=== PATIENT | female | born 1995 | race Caucasian/White ===

== ENCOUNTER 2019-04-28 10:30 | Emergency (ER) | payer OTHER ==
[~2019-04-28] VITALS: Ht 170.2 cm; Wt 99.8 kg
== END 2019-04-28 10:47 | disposition home or self-care (01) ==
LOC: ED 10:30
DX: M25.571 Pain in right ankle and joints of right foot (principal)

== ENCOUNTER 2019-05-31 22:01 | Emergency (ER) | payer OTHER ==
[~2019-05-31] VITALS: Ht 170.2 cm; Wt 99.8 kg
[2019-05-31] MEDS ORDERED: AMOXICILLIN500 MG PO (22:25)
[2019-05-31] MEDS ORDERED: SUDAFED 12 HOU120 MG PO (22:25)
== END 2019-05-31 22:32 | disposition home or self-care (01) ==
LOC: ED 22:01
DX: H66.92 Otitis media, unspecified, left ear (principal); J02.9 Acute pharyngitis, unspecified
CPT/HCPCS: 99282

== ENCOUNTER 2020-03-06 10:10 | Inpatient (IN) | payer OTHER ==
[~2020-03-06 10:10] MED LIST: AMOXICILLIN500 MG PO; SUDAFED 12 HOU120 MG PO
--- NOTE | 2020-03-07 13:33 | NUR ---
03/07/20 1333 Sheets,Marlene 1310 PT ARRIVED TO PACU ON RA AND VSS. IV INFUSING LR WITH 20 PIT IN RIGHT HAND, SITE WNL. FUNDAL CHECK SMALL CLOT NOTED. HOB INCREASED PT DENIES DIZZINESS AND NAUSEA. PT DENIES PAIN, SPINAL LEVEL T-6. AT BEDSIDE.
--- NOTE | 2020-03-10 10:21 | PR ---
[facility] [address] [facility] [place], [place] [address] Signed PP Progress Notes Datetime Report Generated by CPN: 03/10/2020 10:21 SUBJECTIVE: [id number] Pain: Within Normal Limits Nausea/Vomiting: Denies Flatus: Yes Bowel Movement: No Vital Signs: [id number] Cardiovascular: Normal Respiratory: Normal Abdomen/Uterus: Normal Lochia: Normal Extremities: Normal Incision: Normal Progress: Normal Exam Comments: Heart RRR Lungs CTAB Fundus firm below U Incision c/d/i, n o erythema trace BLLE edema IMPRESSION/PLAN/PROCEDURES: [id number] Impression: Normal Progression Plan: Discharge Procedures: None Progress Notes: POD#3 s/p PLTCS, macrosomia and GDM-insulin -mother progressing well post-op, would like DC to boarder status today -staple removal tomorrow (boarder) before going home Acute blood loss anemia on chronic anemia of -asymptomatic -start oral iron once +BM Signing Physician: Meena Freed DO Copies: ~ *Electronically Signed* 03/10/20 1021 MEENA FREED DO PATIENT NAME: LUDWIN VERDUZCO PROGRESS NOTE DATE OF : 95 PHYSICIAN: MEENA FREED DO RPT #: [id number] REPORT IS CONFIDENTIAL AND NOT TO BE RELEASED WITHOUT AUTHORIZATION
--- NOTE | 2020-03-12 03:33 | OR ---
[facility] [address] [place] [address] Signed DATE OF OPERATION: 03/07/2020 SURGEON: Meena Freed DO TELEPHONE COIN BOX COLLECTOR: Henry Senior DO PREOPERATIVE DIAGNOSES: 1. Gestational diabetes, on insulin. 2. macrosomia. POSTOPERATIVE DIAGNOSES: 1. Gestational diabetes, on insulin. 2. macrosomia. PROCEDURE: Primary low transverse section. ANESTHESIA: Spinal. ESTIMATED BLOOD LOSS: 650 mL. LINES: None. DRAINS: Alvarado catheter. SPECIMENS: 1. Placenta. 2. Segmented of umbilical cord. 3. Cord blood. FINDINGS: Live born term male , weighing 10 pounds and 15 ounces, Apgars 9 and 9. Normal-appearing uterus, bilateral tubes and ovaries, normal-appearing appendix. INDICATION: Electronically Signed By: MEENA FREED DO 03/12/20 0333 PATIENT NAME: LUDWIN VERDUZCO OPERATIVE REPORT DATE OF : 95 REPORT #: [id number] PHYSICIAN: MEENA FREED DO PCP: EMY MIRANDA REPORT IS CONFIDENTIAL AND NOT TO BE RELEASED WITHOUT AUTHORIZATION [facility] [address] [place] [address] Signed The patient is a 24-year-old , who presented for scheduled elective primary low transverse section. She had been measuring large during this . Growth ultrasound on Thursday demonstrated an estimated weight of 4228 g, however, Eitan's the same day in office was significant for estimated weight exceeding 10 pounds. Risks, benefits, and alternatives to elective versus medical induction of labor for gestational diabetes were discussed and the patient strongly preferred elective delivery. DESCRIPTION OF PROCEDURE: The patient was taken back to the operating room. She received 2 g Ancef preoperatively for antibiotic prophylaxis. Spinal anesthesia was placed and she was positioned in a supine position with leftward tilt. SCDs were applied and Alvarado catheter was inserted. She was prepped and draped in the normal sterile fashion and spinal anesthesia was found to be adequate. Pfannenstiel incision was made with a scalpel and carried down to the underlying fascia. Fascia was incised at midline with the scalpel and incision was extended laterally with Nesbitt scissors. Superior margin of the fascia was then grasped with Kochers, elevated and the underlying rectus muscle was dissected off bluntly and sharply with Nesbitt scissors. This margin was then released. The inferior margin was grasped with Kochers and elevated in a similar fashion. Underlying rectus muscles were dissected off with blunt and sharp dissection with Nesbitt scissors. Peritoneum was entered bluntly at midline and extended with lateral retraction. Papito retractor was placed. Bladder was easily identified. Hysterotomy was made with a scalpel and extended laterally with superior and inferior retraction. Amniotomy was performed bluntly. 's head was gently elevated and delivered easily in the ROT position followed by the remainder of the 's body which delivered without difficulty. Cord was immediately and doubly clamped and cut and the baby was handed off to the waiting Nursery RN. Segment of cord was doubly clamped and cut and cord blood was collected for type and Jonas. Placenta was delivered by manual traction. Uterus was cleared of membranes. Each apex of the hysterotomy was secured with 0 monocryl in a simple interrupted fashion. Hysterotomy was closed with 0 Monocryl in a running locked fashion. Second layer of closure was completed in imbricating fashion also with 0 Monocryl. Hemostasis was noted. Pelvis was irrigated with warm sterile saline, suctioned, and uterus, tubes, ovaries, and appendix were inspected with findings noted as above. ACell sheet was placed over the hysterotomy and the peritoneum was closed Electronically Signed By: MEENA FREED DO 03/12/20 0333 PATIENT NAME: LUDWIN VERDUZCO OPERATIVE REPORT DATE OF : 95 REPORT #: [id number] PHYSICIAN: MEENA FREED DO PCP: EMY MIRANDA REPORT IS CONFIDENTIAL AND NOT TO BE RELEASED WITHOUT AUTHORIZATION [facility] [address] [place], [place] [address] Signed in a running fashion with 2-0 Vicryl. Rectus muscles were inspected for bleeding and any small bleeding vessels noted were cauterized with the Bovie. Rectus was re-approximated gently with 0 Vicryl with 1 [id number]-fm-nseyu and 1 simple interrupted stitch. ACell powder was then applied. Excellent hemostasis was noted. Fascia was closed with 0 Vicryl in a running fashion with 2 sutures, 1 from each apex working towards midline and meeting in the middle. Subcutaneous layer was irrigated, suctioned, and any small vessels were cauterized with Bovie cautery. This was closed with 3-0 Vicryl in a simple interrupted fashion. Skin was closed with skin clips dressed with Telfa and ABD dressing. Uterus was creded with minimal bleeding. Cervix noted to be dilated to 1 cm. Lap, sponge, and instrument counts were correct x2. The patient tolerated the procedure very well and she and the baby were allowed to recover together skin to skin. Meena Freed DO EMZ/MODL /[id number] Copies: ~ Electronically Signed By: MEENA FREED DO 03/12/20 0333 PATIENT NAME: LUDWIN VERDUZCO OPERATIVE REPORT DATE OF : 95 REPORT #: [id number] PHYSICIAN: MEENA FREED DO PCP: EMY MIRANDA REPORT IS CONFIDENTIAL AND NOT TO BE RELEASED WITHOUT AUTHORIZATION
== END 2020-03-10 15:25 | disposition home or self-care (01) | DRG 787 ==
LOC: FBC 03-07 10:05
PROVIDERS: ADMIT Obstetrics & Gynecology; ATTEND Obstetrics & Gynecology
PROC: 10D00Z1 Extraction of Products of Conception, Low, Open Approach (ICD-10-PCS; principal; 2020-03-07 12:00)
DX: O24.424 Gestational diabetes mellitus in childbirth, insulin controlled (principal); D62 Acute posthemorrhagic anemia; Z37.0 Single live birth; O36.63X0 Maternal care for excessive fetal growth, third trimester, not applicable or unspecified; O32.2XX0 Maternal care for transverse and oblique lie, not applicable or unspecified; O99.02 Anemia complicating childbirth; D64.9 Anemia, unspecified; O76 Abnormality in fetal heart rate and rhythm complicating labor and delivery; Z3A.39 39 weeks gestation of pregnancy; Z87.891 Personal history of nicotine dependence; O99.892 Other specified diseases and conditions complicating childbirth; Q76.2 Congenital spondylolisthesis
CPT/HCPCS: 01961; 36415; 85027; A9270; C1763; J0690; J2001; J2274; J2370; J2405; J2590; J3010; J7121

== ENCOUNTER 2022-11-29 17:25 | Emergency (ER) | payer BC ==
[~2022-11-29] VITALS: Ht 170.2 cm; Wt 110.1 kg
--- OUTSIDE RECORDS SUMMARY | ~2022-11-29 | XMS | Continuity of Care Document ---
Demographics + + + | Address | [address] | | | [place] [address] | + + + | Preferred Language | Unknown | + + + | Marital Status | | + + + | Yazidi Affiliation | Unknown | + + + | Race | White | + + + | Ethnic Group | Unknown | + + + Author + + + | Author | [facility] | + + + | Organization | [facility] | + + + | Address | [address] | | | [place] [address] | + + + | Phone | | + + + Care Team Providers + + + + | Care Order Administrator Name | Role | Phone | + + + + Unavailable | Unavailable | + + + + Allergies and Intolerances + + + + + | date | description | facility | type | + + + + + | (no date) | No Known Allergies | [facility] | (unknown) | | | | | | + + + + + Encounters No information. Functional Status No information. Immunizations No information. Medications No information. Problems + + + + | date | description | facility | + + + + | 2022-11-14 [...] UNSPECIFI | | + + + + Procedures No information. Results/Labs No information. Social History No information. Vital Signs No information."
--- OUTSIDE RECORDS SUMMARY | ~2022-11-29 | XMS | Continuity of Care Document ---
Demographics + + + | Address | [address] | | | [place] [address] | + + + | Preferred Language | Unknown | + + + | Marital Status | | + + + | Mormonism Affiliation | Unknown | + + + | Race | White | + + + | Ethnic Group | Unknown | + + + Author + + + | Author | [facility] | + + + | Organization | [facility] | + + + | Address | [address] | | | [place] [address] | + + + | Phone | | + + + Care Team Providers + + + + | Care Integrity Assessor Name | Role | Phone | + [...]
[2022-11-29 19:32] VITALS: BP 127/78
== END 2022-11-29 19:34 | disposition home or self-care (01) ==
LOC: ED 17:25
DX: O9A.213 Injury, poisoning and certain other consequences of external causes complicating pregnancy, third trimester (principal); S52.121A Displaced fracture of head of right radius, initial encounter for closed fracture; Z3A.35 35 weeks gestation of pregnancy; W18.30XA Fall on same level, unspecified, initial encounter
CPT/HCPCS: 29105; 73080; 99283 25; A9270

== ENCOUNTER 2023-01-26 05:25 | Inpatient (IN) | payer BC ==
[~2023-01-26] VITALS: Ht 170.2 cm; Wt 98.0 kg
--- OUTSIDE RECORDS SUMMARY | ~2023-01-26 | XMS | Continuity of Care Document ---
Demographics + + + | Address | [address] | | | [place] [address] | + + + | Preferred Language | Unknown | + + + | Marital Status | | + + + | Mosque Affiliation | Unknown | + + + | Race | White | + + + | Ethnic Group | Not or | + + + Author + + + | Author | [facility] | + + + | Organization | [facility] | + + + | Address | [address] | | | [place] [address] | + + + | Phone | | + + + Care Team Providers + + + + | Care Uncrater Name | Role | Phone | + + + + Unavailable | Unavailable | + + + + Unavailable | Unavailable | + + + + Allergies and Intolerances + + + + + + | date | description | facility | reaction | severity | + + + + + + | (no date) | No Known | [facility] | (no reaction) | (no severity) | | | Allergies | | | | + + + + + + Encounters No information. Functional Status No information. Immunizations No information. Medications + + + + | date | description | facility | + + + + | 2019-05-31 00:00 | PSEUDOEPHEDRINE HCL | [facility] | + + + + | 2019-05-31 00:00 | AMOXICILLIN | [facility] | + + + + Problems + + + + | date | description | facility | + + + + | 2019-04-28 00:00 | Encounter for medical | [facility] | | | screening examination | | + + + + | 2019-05-31 00:00 | Otitis media | [facility] | + + + + | 2019-05-31 00:00 | Pharyngitis | [facility] | + + + + | 2022-07-10 15:55 | ENCOUNTER FOR SUPRVSN OF | [facility] | | | NORMAL , FIRST | | | | TRIMESTER | | + + + + | 2022-07-10 15:55 | 9 WEEKS GESTATION OF | [facility] | | | | | + + + + | 2022-07-10 15:55 | 10 WEEKS GESTATION OF | [facility] | | | | | + + + + | 2022-09-29 09:57 | PROTOZOAL DISEASES | [facility] | | | COMPLICATING CHILDBIRTH | | + + + + | 2022-09-29 09:57 | 22 WEEKS GESTATION OF | [facility] | | | | | + + + + | 2022-11-14 10:56 | UTERINE SIZE-DATE | [facility] | | | DISCREPANCY, THIRD | | | | TRIMESTER | | + + + + | 2022-11-14 10:56 | UTERINE SIZE-DATE | [facility] | | | DISCREPANCY, UNSPECIFI | | + + + + | 2022-11-14 10:56 | 31 WEEKS GESTATION OF | [facility] | | | | | + + + + | 2022-11-14 11:00 | UTERINE SIZE-DATE | [facility] | | | DISCREPANCY, UNSPECIFI | | + + + + | 2022-11-29 00:00 | Fracture of head of right | [facility] | | | radius | | + + + + | 2022-11-29 00:00 | Sprain of right elbow | [facility] | + + + + | 2022-11-29 17:26 | PAIN IN RIGHT ELBOW | [facility] | + + + + | 2022-11-29 17:26 | MARGARITA/GODWIN/ROSETTA CONSEQ OF | [facility] | | | EXTERNAL CAUSES COMP PREG, | | + + + + | 2022-11-29 17:26 | DISP FX OF HEAD OF RIGHT | [facility] | | | RADIUS, INIT FOR CLOS FX | | + + + + | 2022-11-29 17:26 | FALL ON SAME LEVEL, | [facility] | | | UNSPECIFIED, INITIAL | | | | ENCOUNTER | | + + + + | 2022-11-29 17:26 | 35 WEEKS GESTATION OF | [facility] | | | | | + + + + | 2022-12-19 13:45 | SUPRVSN OF PREG W POOR | [facility] | | | REPRODCTV OR OBSTET HX, THI | | | | | | + + + + | 2022-12-19 13:45 | OBESITY COMPLICATING | [facility] | | | , THIRD TR | | + + + + | 2022-12-19 13:45 | OBESITY COMPLICATING | [facility] | | | , THIRD TRIMESTER | | + + + + | 2022-12-19 13:45 | 33 WEEKS GESTATION OF | [facility] | | | | | + + + + | 2022-12-19 14:00 | OBESITY COMPLICATING | [facility] | | | , THIRD TR | | + + + + | 2023-01-05 10:54 | SUPRVSN OF PREG W POOR | [facility] | | | REPRODCTV OR OBSTET HX, THI | | | | | | + + + + | 2023-01-05 10:54 | OBESITY COMPLICATING | [facility] | | | , THIRD TR | | + + + + | 2023-01-05 10:54 | OBESITY COMPLICATING | [facility] | | | , THIRD TRIMESTER | | + + + + | 2023-01-05 10:54 | 39 WEEKS GESTATION OF | [facility] | | | | | + + + + | 2023-01-05 11:00 | OBESITY COMPLICATING | [facility] | | | , THIRD TR | | + + + + | 2023-01-21 20:36 | FULL-TERM DOLORES ROM, UNSP | [facility] | | | TIME BETW RUPTURE AND ONSET | | | | LABOR | | + + + + | 2023-01-21 20:36 | 38 WEEKS GESTATION OF | [facility] | | | | | + + + + Procedures No information. Results/Labs No information. Social History No information. Vital Signs + + + +---------+ | date | measurement | value | units | + + + +---------+ | 2022-11-29 00:00 | BMI | 38.0 | kg/m2 | + + + +---------+ | 2022-11-29 00:00 | BP_diastolic | 78 | mmHg | + + + +---------+ | 2022-11-29 00:00 | BP_systolic | 127 | mmHg | + + + +---------+ | 2022-11-29 00:00 | heart_rate | 88 | /min | + + + +---------+ | 2022-11-29 00:00 | height_metric | 170.18 | cm | + + + +---------+ | 2022-11-29 00:00 | height_standard | 67 | in | + + + +---------+ | 2022-11-29 00:00 | o2_saturation | 98 | % | + + + +---------+ | 2022-11-29 00:00 | respiration_rate | 16 | /min | + + + +---------+ | 2022-11-29 00:00 | temperature_metric | 36.94 | C | | | | | | + + + +---------+ | 2022-11-29 00:00 | | 98.5 | F | | | temperature_standar | | | | | d | | | + + + +---------+ | 2022-11-29 00:00 | weight_metric | 110.1 | kg | + + + +---------+ | 2022-11-29 00:00 | weight_standard | 242.73 | lb | + + + +---------+"
[2023-01-26 06:51] LABS: AMNISURE ROM TEST POSITIVE
[2023-01-26 07:27] VITALS: BP 131/90
[2023-01-26 07:27] LABS: HEMATOCRIT 31.3 % (35.0-50.0); HEMOGLOBIN 9.7 g/dL (12.0-18.0); MCH 19.8 (27-36); RBC 4.89 M/ul (4.3-5.7); RDW 17.6 (10.5-15.0)
[2023-01-26 07:31] LABS: AMPHETAMINES, UR NEGATIVE (NEGATIVE); BARBITURATES, UR NEGATIVE (NEGATIVE); BENZODIAZEPINES, UR NEGATIVE (NEGATIVE); BUPRENORPHINE,UR NEGATIVE (NEGATIVE); COCAINE, UR NEGATIVE (NEGATIVE); MARIJUANA (THC), UR NEGATIVE (NEGATIVE); MDMA, UR NEGATIVE (NEGATIVE); METHADONE, UR NEGATIVE (NEGATIVE); METHAMPHETAMINE, UR NEGATIVE (NEGATIVE); OPIATES, UR NEGATIVE (NEGATIVE); OXYCODONE, UR NEGATIVE (NEGATIVE); PHENCYCLIDINE, UR NEGATIVE (NEGATIVE); TRICYCLIC ANTIDEPRESSANT, UR NEGATIVE (NEGATIVE)
[2023-01-26 07:50] LABS: CREATININE, RANDOM URINE 51.46 mg/dL (NOT ESTABLISHED); PROTEIN/CREATININE RATIO 0.64 mg/mg (0.010-0.107)
[2023-01-26 08:02] LABS: ABO A; ANTIBODY SCREEN NEGATIVE; RH POSITIVE
[2023-01-26 08:07] LABS: ALBUMIN 2.3 g/dL (3.4-5.0); ALBUMIN/GLOBULIN RATIO 0.51 (1.1-2.4); ANION GAP 16.8 (7-21); BILIRUBIN, TOTAL 0.5 ng/dL (0.2-1.0); BUN/CREATININE RATIO 11.94 (6.0-28.6); CALCIUM 8.7 mg/dL (8.5-10.1); CREATININE, SERUM 0.67 mg/dL (0.55-1.02); POTASSIUM 3.8 mmol/L (3.5-5.1); PROTEIN, TOTAL 6.8 g/dL (6.4-8.2)
[2023-01-26 08:41] LABS: CREATININE, RANDOM URINE 116.54 mg/dL (NOT ESTABLISHED); PROTEIN/CREATININE RATIO 0.24 mg/mg (0.010-0.107)
--- NOTE | 2023-01-26 09:21 | NUR ---
01/26/23 0921 Chery Desai 0915: PT IS TO [facility] ROOM 104 FOR PACU RECOVERY. SHE IS AWAKE AND ALERT. REMBERTO 0920: BABE IS TO MOM'S CHEST. NO COMPLAINTS OF PAIN, NAUSEA, OR SOB.
[2023-01-26 09:31] VITALS: BP 126/66
--- NOTE | 2023-01-26 10:32 | PR ---
[facility] [address] [facility] [place], [place] [address] Signed PP Progress Notes Datetime Report Generated by CPSrikanth: 01/26/2023 10:32 SUBJECTIVE: [id number] Vital Signs: [id number] Exam Comments: Fundus firm, lower uterine segment distended with clot, evacuated, with sterile exam, 230mL. Refilled with clot nearly immediately with 132 mL clots. Fundus firm throughout. IMPRESSION/PLAN/PROCEDURES: [id number] Progress Notes: Total EBL: 500mL with delivery, additional 940mL (total) expressed clot with fundal checks and expression as noted above bringing blood loss to 1240mL. Increased pitocin (30 units in 500mL bag) to 200mL/hr, cytotec suppository of 1000mcg placed rectally, TXA 1g ordered. Discussed with pt risk factors for hemorrhage, particularly macrosomia, plt 175. Coagulation panel ordered, results pending. Reviewed reassuring/ stable vital signs, excellent UOP. Second IV placed. Will continue close clinical monitoring. Signing Physician: Meena Freed DO Copies: ~ *Electronically Signed* 01/26/23 1032 MEENA FREED DO PATIENT NAME: LUDWIN VERDUZCO PROGRESS NOTE DATE OF : 95 PHYSICIAN: MEENA FREED DO RPT #: [id number] REPORT IS CONFIDENTIAL AND NOT TO BE RELEASED WITHOUT AUTHORIZATION
[2023-01-26 10:43] LABS: HEMATOCRIT 28.1 % (35.0-50.0); HEMOGLOBIN 8.9 g/dL (12.0-18.0); MCH 20.3 (27-36); MCHC 31.5 g/dl (30-36); MCV 64.5 fl (81-99); PLATELET COUNT 168 K/uL (140-440); RBC 4.36 M/ul (4.3-5.7); RDW 17.7 (10.5-15.0)
[2023-01-26 11:04] LABS: INR 1.02 (0.80-1.30)
[2023-01-26 11:06] LABS: PARTIAL THROMBOPLASTIN TIME 25.7 Sec (22.9-41.3)
[2023-01-26 11:08] LABS: SMEAR REVIEW BLOOD SEE COMMENTS
[2023-01-27 05:30] LABS: HEMATOCRIT 23.8 % (35.0-50.0); HEMOGLOBIN 7.4 g/dL (12.0-18.0); MCH 19.9 (27-36); MCV 64.2 fl (81-99); RBC 3.71 M/ul (4.3-5.7); RDW 17.4 (10.5-15.0)
--- NOTE | 2023-01-27 11:00 | PR ---
[facility] [address] [place], [place] [address] Signed PP Progress Notes Datetime Report Generated by CPSrikanth: 01/27/2023 11:00 SUBJECTIVE: [id number] Pain: Within Normal Limits Nausea/Vomiting: Denies Flatus: Yes Vital Signs: [id number] Vital Signs: Reviewed; Within Normal Limits Cardiovascular: Normal Respiratory: Normal Abdomen/Uterus: Normal Extremities: Normal Incision: Normal Progress: Not Applicable Exam Comments: NAD, sitting in chair at bedside RRR No dyspnea/ retractions Abd SNTND, FF@U, Incision c/d/i, dressing in place, no strikethrough on dressing Ext trace BLLE edema, ambulating slowly but even steady gait IMPRESSION/PLAN/PROCEDURES: [id number] Impression: Normal Progression Other Impression: hemorrhage Plan: Continue Present Management Other Procedures: Iron infusion Progress Notes: POD#1 s/p RLTCS after PROM @ 39 weeks gestation -Acute blood loss anemia on chronic anemia of : hgb 7.4 this am from 9.7 on admission and hemorrhage. IV iron infusion recommended -anticipate shower later today, dressing removal at that time. Will try abdominal binder for additional support. -DC tomorrow or Signing Physician: Meena Freed DO Copies: ~ *Electronically Signed* 01/27/23 MEENA OWUSU DO PATIENT NAME: LUDWIN VERDUZCO PROGRESS NOTE DATE OF : 95 PHYSICIAN: MEENA FREED DO [facility] #: [id number] REPORT IS CONFIDENTIAL AND NOT TO BE RELEASED WITHOUT AUTHORIZATION
--- NOTE | 2023-01-28 07:43 | PR ---
[facility] [address] [place], [place] [address] Signed PP Progress Notes Datetime Report Generated by CPSrikanth: 01/28/2023 07:43 SUBJECTIVE: [id number] Pain: Within Normal Limits Nausea/Vomiting: Denies Flatus: Yes Bowel Movement: Yes Vital Signs: [id number] Vital Signs: Reviewed; Within Normal Limits Cardiovascular: Normal Respiratory: Normal Abdomen/Uterus: Normal Lochia: Normal Extremities: Normal Incision: Normal Progress: Normal Exam Comments: NAD RRR No dyspnea/ retractions Abd SNTND, FFBU Incision c/d/i, no discharge on pad Ext: trace edema, neg Alisia's BL, normal gait IMPRESSION/PLAN/PROCEDURES: [id number] Impression: Normal Progression Other Impression: hemorrhage Plan: Continue Present Management; Discharge Other Procedures: Iron infusion Progress Notes: POD#2 s/p RLTCS -progressing well, ambulating, voiding, tolerating regular diet, +BM, requesting DC to home today -acute on chronic blood loss anemia: s/p IV iron infusion yesterday, home on oral iron -staple removal in office on Thursday, outpatient follow-up at 2 and 6 weeks -undecided re: contraception, does not like hormonal methods -formula feeding baby Signing Physician: Meena Freed DO *Electronically Signed* 01/28/23 0743 MEENA FREED DO PATIENT NAME: LUDWIN VERDUZCO PROGRESS NOTE DATE OF : 95 PHYSICIAN: MEENA FREED DO [facility] #: [id number] REPORT IS CONFIDENTIAL AND NOT TO BE RELEASED WITHOUT AUTHORIZATION
--- NOTE | 2023-01-29 12:20 | OR ---
[facility] [address] [place] [address] Signed DATE OF OPERATION: 01/26/2023 SURGEON: Meena Freed DO TECHNOLOGY ADVISOR: Henry Senior DO PROCEDURE: Electronically Signed By: MEENA FREED DO 01/29/23 1220 PATIENT NAME: LUDWIN VERDUZCO OPERATIVE REPORT DATE OF : 95 REPORT #: [id number] PHYSICIAN: MEENA FREED DO PCP: EMY MIRANDA REPORT IS CONFIDENTIAL AND NOT TO BE RELEASED WITHOUT AUTHORIZATION [address] [place], [place] [address] Signed Repeat low-transverse . PREOP DIAGNOSIS: History of prior Prelabor rupture of membranes Macrosomia GBS carrier 39 weeks gestation POSTOP DIAGNOSIS: Term delivered macrosomia h/o prior GBS carrier ESTIMATED BLOOD LOSS: 500 mL. ANESTHESIA: Spinal. COMPLICATIONS: None. FINDINGS: Term viable female in the right occiput posterior position, 10 pounds 13 ounces. Apgars of 8 and 9 at one and five minutes respectively. Normal-appearing bilateral tubes and ovaries. Minimal scarring of the rectus fascia. Otherwise, no scarring appreciated from prior . INDICATIONS: The patient is a 27-year-old G2, P1-0-0-1 with history of one prior for macrosomia, anticipated macrosomia with this as well, who was originally scheduled for repeat 01/29/2023. She presented this morning with complaints of leakage of fluid, found to have ruptured membranes. Risks, benefits, alternatives were reviewed and she elected to proceed with repeat . DESCRIPTION OF PROCEDURE: The patient was taken back to the OR where she was given 3 g Ancef, 500 mg azithromycin. Spinal anesthesia was placed. She was prepped and draped in normal sterile fashion. Adequate anesthesia was confirmed. Skin incision was made with a scalpel Electronically Signed By: MEENA FREED DO 01/29/23 1220 PATIENT NAME: LUDWIN VERDUZCO OPERATIVE REPORT DATE OF : 95 REPORT #: [id number] PHYSICIAN: MEENA FREED DO PCP: EMY MIRANDA REPORT IS CONFIDENTIAL AND NOT TO BE RELEASED WITHOUT AUTHORIZATION [facility] [address] [place] [address] Signed through prior low transverse scar and carried down to the underlying layer of fascia with Bovie cautery, cauterizing vessels as they were encountered. Fascia was nicked in midline and extended laterally with Nesbitt scissors. Inferior margin of fascia was grasped with Napoleon clamps, elevated, and underlying rectus muscles dissected off bluntly and sharply with Nesbitt scissors. Inferior margin of fascia was released. Superior margin was grasped, elevated with Napoleon clamps. Underlying rectus muscles dissected off bluntly and sharply with Nesbitt scissors with some scarring noted. Peritoneum was entered bluntly, extended inferiorly with Nesbitt scissors with excellent visualization of the bladder at all times. This was further extended with lateral traction. Papito retractor was placed after sweep confirmed lack of adhesions. Incision was made with a scalpel at the vesicouterine junction and the uterus was entered bluntly digitally. Amniotomy was performed with pickups. Infant's head was easily elevated to the level of the hysterotomy and delivered through with fundal pressure via the litigation assistant. Anterior and posterior shoulders were easily delivered, followed by remainder of the infant's body. Cord was doubly clamped and cut immediately. Baby was handed to waiting nursery team, where she gave a spontaneous cry. Cord blood was collected for type and Jonas. Placenta was manually expressed. Uterus was cleared of clots and debris with a dry lap sponge. Stay suture of 0 Monocryl was placed at the right apex. Hysterotomy was closed in 2-layer closure with 0 Monocryl, first with 0 Monocryl in a running locked fashion, second with 0 Monocryl in an imbricating manner. Excellent hemostasis was noted for the most part; however, there was some minimal persistent oozing and Lia powder was applied. After this, hemostasis was confirmed. Papito retractor was removed. Peritoneum was closed with 2-0 Vicryl in a running fashion. Rectus muscles reapproximated at midline with 0 Vicryl in a simple interrupted fashion. Perforating vessels were cauterized with Bovie cautery. One perforating vessel required a single stitch of 0 Vicryl in a [id number]-[id number]-[id number] fashion for hemostasis. Remaining Lia powder was applied over this layer. The fascia was closed with 0 Vicryl in a running fashion working first right apex to midline, then left apex to midline meeting in the middle. Subcutaneous layer was suction irrigated with warm sterile saline. Perforating vessels were cauterized with Bovie cautery and this layer was closed with 3-0 Vicryl in a running fashion. Skin was closed with christ. Uterus was Crede'd, noted to be firm. The patient remained in the OR for placement of TAP blocks by Anesthesia. Sponge and instrument counts were correct. Meena Freed DO Electronically Signed By: MEENA FREED DO 01/29/23 1220 PATIENT NAME: LUDWIN VERDUZCO OPERATIVE REPORT DATE OF : 95 REPORT #: [id number] PHYSICIAN: MEENA FREED DO PCP: EMY MIRANDA REPORT IS CONFIDENTIAL AND NOT TO BE RELEASED WITHOUT AUTHORIZATION [address] [place], [place] [address] Signed GAGAN/FRANCIS /[id number] Copies: ~ Electronically Signed By: MEENA FREED DO 01/29/23 1220 PATIENT NAME: LUBALAUREENSELMA ADKINS OPERATIVE REPORT DATE OF : 95 REPORT #: [id number] PHYSICIAN: MEENA FREED DO PCP: EMY MIRANDA REPORT IS CONFIDENTIAL AND NOT TO BE RELEASED WITHOUT AUTHORIZATION
== END 2023-01-28 09:05 | disposition home or self-care (01) | DRG 787 ==
LOC: FBCO 05:25 → FBC 07:05
PROVIDERS: ADMIT Obstetrics & Gynecology; ATTEND Obstetrics & Gynecology
PROC: 10D00Z1 Extraction of Products of Conception, Low, Open Approach (ICD-10-PCS; principal; 2023-01-26 08:00)
DX: O42.02 Full-term premature rupture of membranes, onset of labor within 24 hours of rupture (principal); D62 Acute posthemorrhagic anemia; O34.211 Maternal care for low transverse scar from previous cesarean delivery; O36.63X0 Maternal care for excessive fetal growth, third trimester, not applicable or unspecified; Z37.0 Single live birth; O90.81 Anemia of the puerperium; Z67.10 Type A blood, Rh positive; Z3A.39 39 weeks gestation of pregnancy; Z87.891 Personal history of nicotine dependence; O99.824 Streptococcus B carrier state complicating childbirth; Z87.81 Personal history of (healed) traumatic fracture; Z79.899 Other long term (current) drug therapy
CPT/HCPCS: 01961; 36415; 76942; 80053; 82570; 83615; 84112; 84156; 84550; 85027; 85060; 85384; 85610; 85730; 86850; 86900; 86901; A9270; J0456; J0690; J1100; J1650; J1885; J2274; J2371; J2405; J2590; J2795; J7121; Q0138